=== PATIENT | male | born 1985 | race Caucasian/White ===

== ENCOUNTER 2019-02-15 20:13 | Emergency (ER) | payer OTHER ==
[~2019-02-15] VITALS: Ht 190.5 cm; Wt 106.6 kg
[2019-02-15 20:45] VITALS: BP 124/77
--- NOTE | 2019-02-15 21:19 | NUR ---
#20 gauge OTN catheter to left hand x 1 attempt. Flushed with saline and locked.
--- NOTE | 2019-02-15 21:36 | ER.PDOC ---
General Chief Complaint: Extremities Stated Complaint: R ARM PAIN Time seen by MD: 21:25 Source: patient, family (SPOUSE) Exam Limitations: no limitations History of Present Illness Initial Comments 34 YO MALE PRESENTS WITH RIGHT ANTECUBITAL PAIN AND SWELLING X 2 DAYS. HE STATED HE WAS SHOOTING METH AND MISSED THE VEIN. HE HAS HAD PAIN 9/10, WORSENING SWEL LING. NO FEVER OR CHILLS. NO CHEST PAIN OR SHORTNESS OF BREATH. HE HAS NOT TAKEN ANY MEDICATIONS FOR THE PAIN. Occurred: other (2 DAYS AGO PRIOR TO ARRIVAL) Where: home Severity: severe Exacerbated By: movement of Relieved By: nothing Quality: pain, swelling, tenderness Prior symptoms/Treatment: Similar symptoms previous Allergies: Coded Allergies: tramadol (Verified Allergy, Severe, Anaphylaxis Shock, 02/16/19) Past Medical History Medical History: hypertension Surgical History: tonsillectomy Family History Significant Family History: no pertinent family hx Social History Smoking: non-smoker Alcohol Use: none Drug Use: marijuana, Meth Reviewed Nursing Reviewed: Nursing Assessment Review of Systems Constitutional: denies chills, denies fever, denies malaise Respiratory: denies cough, denies shortness of breath Cardiovascular: denies chest pain, denies edema, denies palpitations Gastrointestinal: denies abdominal pain, denies diarrhea, denies nausea, denies vomiting Musculoskeletal: denies back pain, denies neck pain Skin: other (PAIN AND SWELLNG RIGHT ANTECUBITAL REGION) Psychiatric/Neurological: denies headache Physical Exam General Appearance: mild distress Upper Extremity: tenderness (RIGHT ANTECUBITAL AREA,), swelling (SWOLLEN, WARMTH, ERYTHEMA, INDURATION RIGHT ANTECUBITAL AREA), limited ROM (RIGHT ANTECUBITAL DUE TO PAIN) Skin: warm/dry Vascular: no vascular compromise Neuro/Psych: sensation nml, motor nml Central Exam: oriented X3, CN's nml as tested EENT: eyes nml inspection Neck/Back: nml inspection Respiratory: no resp distress CVS: reg rate & rhythm Abdomen: non-tender Results/Orders Results/Orders Orders - HAILEY REYES MD Cbc With Auto Diff (02/15/19 21:32) Comprehensive Metabolic Panel (02/15/19 21:32) D-Dimer (02/15/19 21:32) Us Soft Tissue Extremity (02/15/19 21:33) Ob Doppler (Er) (02/15/19 21:33) Ketorolac Tromethamine (Toradol) (02/15/19 22:18) Acetaminophen (Tylenol) (02/15/19 22:18) Acetaminophen (Tylenol) (02/15/19 22:22) Ketorolac Tromethamine (Toradol) (02/15/19 22:23) Lidocaine Hcl (Lidocaine 1% Vial) (02/15/19 23:22) Morphine Sulfate (Morphine Sulfate) (02/15/19 23:43) Ceftriaxone Sodium (Rocephin Im) (02/15/19 23:43) Morphine Sulfate/Pf (Duramorph) (02/16/19 00:00) Ceftriaxone Sodium (Rocephin) (02/15/19 23:52) 0.9 % Sodium Chloride (Ns 100ml) (02/15/19 23:55) Ceftriaxone Sodium (Rocephin) (02/15/19 23:55) Vital Signs Date Time Temp Pulse Resp B/P (MAP) Pulse Ox O2 Delivery O2 Flow Rate FiO2 02/16/19 01:46 98.4 96 18 96 Room Air 02/16/19 00:33 96 18 126/88 (101) 96 Room Air 02/15/19 23:57 91 18 123/86 (98) 97 Room Air 02/15/19 20:45 98.4 109 18 97 Room Air 98.4 02/15/19 20:45 98.4 109 18 98.4 02/15/19 20:45 98.4 109 18 124/77 (93) 97 Room Air 98.4 Administered Medications Medications (Trade) Dose Ordered Sig/Elyssa Route PRN Reason Start Time Stop Time Status Last Admin Dose Admin Acetaminophen (Tylenol) 1,000 mg STAT STAT PO 02/15/19 22:18 02/15/19 22:19 DC 02/15/19 22:28 1,000 MG Ceftriaxone Sodium 1000 mg/ Sodium Chloride 100 ml @ 100 mls/hr STAT STAT IV 02/15/19 23:52 02/16/19 00:51 DC 02/16/19 00:05 100 MLS/HR Ketorolac Tromethamine (Toradol) 30 mg STAT STAT IV 02/15/19 22:18 02/15/19 22:19 DC 02/15/19 22:27 30 MG Morphine Sulfate (Duramorph) 4 mg STAT ONCE IV 02/16/19 00:00 02/16/19 00:01 DC 02/16/19 00:05 4 MG Laboratory Tests Test 02/15/19 21:43 White Blood Count 14.5 10^3/uL (4.5-11.0) H Red Blood Count 4.57 10^6/uL (4.50-5.90) Hemoglobin 14.3 g/dL (13.9-16.3) Hematocrit 39.9 % (37.0-53.0) Mean Corpuscular Volume 87.3 fL (78-100) Mean Corpuscular Hemoglobin 31.3 pg (26-34) Mean Corpuscular Hemoglobin Concent 35.8 g/dL (33-37) Red Cell Distribution Width 13.2 % (11.5-14.5) Platelet Count 224 10^3/uL (150-400) Mean Platelet Volume 10.4 fL (7.8-11.0) Neutrophils (%) (Auto) 78.2 % (41.0-85.0) Lymphocytes (%) (Auto) 11.0 % (24.0-44.0) L Monocytes (%) (Auto) 9.0 % (5.0-12.0) Neutrophils # (Auto) 11.3 10^3/uL (1.8-7.7) H Lymphocytes # (Auto) 1.6 10^3/uL (1.0-4.8) Monocytes # (Auto) 1.3 10^3/uL (0.3-0.8) H Absolute Immature Granulocyte (auto 0.02 10^3 u/L (0-2) Immature Granulocytes % 0.10 % (0.00-0.50) Eosinophils % 1.3 % (0.0-5.0) Basophils % 0.4 % (0.0-0.2) H Basophils # 0.1 10^3/uL (0.0-0.1) Eosinophil Count 0.2 10^3/uL (0.0-0.2) D-Dimer 0.19 mg/L (0.19-0.49) Sodium Level 139 mmol/L (132-145) Potassium Level 3.9 mmol/L (3.6-5.2) Chloride Level 102.0 mmol/L (96-109) Carbon Dioxide Level 28.4 mmol/L (20.0-32) Anion Gap 12.5 Blood Urea Nitrogen 23 mg/dL (7-18) H Creatinine 1.23 mg/dL (0.59-1.40) Estimated GFR () 82.0 (>/=60) BUN/Creatinine Ratio 18.0 Glucose Level 117 mg/dL (70-110) H Calcium Level 9.2 mg/dL (8.4-10.5) Total Bilirubin 0.8 mg/dL (0.2-1.0) Aspartate Amino Transferase (AST) 22 U/L (0-35) Alanine Aminotransferase (ALT) 30 U/L (12-78) Alkaline Phosphatase 57 U/L (50-136) Total Protein 7.5 g/dL (6.4-8.2) Albumin 3.8 g/dL (3.4-5.0) Globulin 3.7 Progress Progress ELEVATED WBC, BUN. D-DIMER NEGATIVE. I DID NEEDLE ASPIRATION OF THE TENDER SWOLLEN RIGHT ANTECUBITAL AREA- YIELDED NO ASPIRATE. WILL COMMENCE ANTIBIOTICS, ANALGESICS, CLOSE FOLLOW UP. Departure Time of Disposition: 23:48 Disposition: 01 HOME, SELF-CARE Impression: Primary Impression: Cellulitis Additional Impression: Phlebitis Condition: Stable Patient Instructions: Cellulitis, Phlebitis, [id number] Referrals: PCP,UNKNOWN (PCP) PRIMARY CARE PROVIDER LUCA REDDY MD FOLLOW UP IN 3-5 DAYS FOR RECHECK RETURN TO THE ER IF YOUR CONDITION WORSENS Additional Instructions: ICE PACK TO AFFECTED AREA TO HELP WITH SWELLING. KEEP AFFECTED AREA CLEAN AND DRY. Comments NAPROSYN, KEFLEX, TYLENOL #3 Duration or Time Spent with Pa: 60 MIN Problem Qualifiers Primary Impression: Cellulitis Site of cellulitis: extremity Site of cellulitis of extremity: upper extremity Laterality: right Qualified Codes: L03.113 - Cellulitis of right upper limb HAILEY REYES MD February 15, 2019 21:36
[2019-02-15 21:52] LABS: BASOPHIL # 0.1 10^3/uL (0.0-0.1); BASOPHIL % 0.4 % (0.0-0.2); EOSINOPHIL # 0.2 10^3/uL (0.0-0.2); EOSINOPHIL % 1.3 % (0.0-5.0); HEMOGLOBIN 14.3 g/dL (13.9-16.3); LYMPHOCYTES # 1.6 10^3/uL (1.0-4.8); MEAN CELL HGB 31.3 pg (26-34); MEAN CELL HGB CONCENTRATION 35.8 g/dL (33-37); MEAN CORP VOLUME 87.3 fL (78-100); MEAN PLATELET VOLUME 10.4 fL (7.8-11.0); MONOCYTES # 1.3 10^3/uL (0.3-0.8); NEUTROPHIL # 11.3 10^3/uL (1.8-7.7); NEUTROPHILS % 78.2 % (41.0-85.0); RED CELL DISTRIBUTION WIDTH 13.2 % (11.5-14.5); WHITE BLOOD CELL 14.5 10^3/uL (4.5-11.0)
[2019-02-15] MEDS ORDERED: TORADOL IV STA (22:18)
[2019-02-15] MEDS ORDERED: TYLENOL PO STA (22:18)
[2019-02-15 22:19] LABS: CALCIUM 9.2 mg/dL (8.4-10.5); CARBON DIOXIDE 28.4 mmol/L (20.0-32)
[2019-02-15] MEDS ORDERED: TYLENOL PO ONE (22:22)
[2019-02-15] MEDS ORDERED: TORADOL ONE (22:23)
--- NOTE | 2019-02-15 22:32 | NUR ---
Toradol 30 mg IVP. Tyleno one gram with sips of water. Rates arm pain 9/10.
[2019-02-15] MEDS ORDERED: LIDOCAINE 1% VIAL ONE (23:22)
[2019-02-15] MEDS ORDERED: MORPHINE SULFATE IM STA (23:43)
[2019-02-15] MEDS ORDERED: ROCEPHIN IM IM STA (23:43)
[2019-02-15] MEDS ORDERED: ROCEPHIN 1,000 MG in NS 100ML 100 ML IV STA (23:52)
[2019-02-15] MEDS ORDERED: NS 100ML 100 ML IV ONE (23:55)
[2019-02-15] MEDS ORDERED: ROCEPHIN ONE (23:55)
[2019-02-15 23:57] VITALS: BP 123/86
[2019-02-16] MEDS ORDERED: DURAMORPH IV ONE
[2019-02-16 00:33] VITALS: BP 126/88
--- NOTE | 2019-02-16 01:00 | NUR ---
IV IV removed, tip intact. Placed cottonball over IV site, secured with coban. Instructed patient to remove coban on the arrival of home. Patient expressed understanding
--- NOTE | 2019-02-16 01:03 | NUR ---
Intervention Placed kerlex, ice pack and rhiannon bandage on patients right arm. Patient is in stable condtion at this time.
[2019-02-16 01:46] VITALS: BP 126/88
== END 2019-02-16 01:04 | disposition home or self-care (01) ==
LOC: ER 20:13
DX: L03.113 Cellulitis of right upper limb (principal); I80.8 Phlebitis and thrombophlebitis of other sites; F12.10 Cannabis abuse, uncomplicated; F15.10 Other stimulant abuse, uncomplicated; I10 Essential (primary) hypertension; Z88.6 Allergy status to analgesic agent; Z90.89 Acquired absence of other organs
CPT/HCPCS: 36415; 80053; 85025; 85379; 96365; 96375; 99284; A9150; J0696 ×2; J1885; J2001; J7050 ×2

== ENCOUNTER 2019-02-16 22:52 | Inpatient (IN) | payer OTHER ==
[~2019-02-16] VITALS: Ht 190.5 cm; Wt 108.1 kg
[2019-02-16 23:00] VITALS: BP 125/78
[2019-02-16] MEDS ORDERED: TORADOL IV STA (23:11)
[2019-02-16] MEDS ORDERED: MORPHINE SULFATE IV STA (23:20)
[2019-02-16] MEDS ORDERED: NS 1000ML 1,000 ML IV ONE (23:30)
[2019-02-16] MEDS ORDERED: VANCOMYCIN HCL 1.5 GM in NS 250ML 300 ML IV ONE (23:30)
[2019-02-16] MEDS ORDERED: VANCOMYCIN HCL 2 GM ONE (23:34)
[2019-02-16] MEDS ORDERED: NS 1000ML 1,000 ML ONE (23:35)
[2019-02-16] MEDS ORDERED: NS 250ML 250 ML IV ONE (23:35)
[2019-02-16] MEDS ORDERED: TORADOL ONE (23:36)
[2019-02-16 23:38] LABS: BASOPHIL % 0.3 % (0.0-0.2); EOSINOPHIL # 0.3 10^3/uL (0.0-0.2); HEMOGLOBIN 14.1 g/dL (13.9-16.3); LYMPHOCYTES % 13.6 % (24.0-44.0); MEAN CELL HGB 31.5 pg (26-34); MEAN CELL HGB CONCENTRATION 36.2 g/dL (33-37); MEAN CORP VOLUME 87.2 fL (78-100); MEAN PLATELET VOLUME 10.8 fL (7.8-11.0); MONOCYTES # 1.6 10^3/uL (0.3-0.8); MONOCYTES % 10.7 % (5.0-12.0); NEUTROPHIL # 10.6 10^3/uL (1.8-7.7); NEUTROPHILS % 73.2 % (41.0-85.0); RED CELL DISTRIBUTION WIDTH 13.2 % (11.5-14.5); WHITE BLOOD CELL 14.4 10^3/uL (4.5-11.0)
[2019-02-16 23:54] LABS: CALCIUM 9.2 mg/dL (8.4-10.5); CARBON DIOXIDE 26.7 mmol/L (20.0-32)
--- NOTE | 2019-02-17 00:33 | ER.PDOC ---
General Chief Complaint: Requesting Medical Care Stated Complaint: ARM PAIN Time seen by MD: 12:33 Source: patient Exam Limitations: no limitations History of Present Illness Initial Comments H/O IV DRUG ABUSE Timing/Duration: 24 hours Severity: moderate Location: RUE Quality: painful Identified Cause: yes Exposure: infectious illiness Allergies: Coded Allergies: tramadol (Verified Allergy, Severe, Anaphylaxis Shock, 02/16/19) Past Medical History Surgical History: tonsillectomy Social History Drug Use: marijuana, Meth Reviewed Nursing Reviewed: Vital Signs, Abn. Noted All Other Systems: Reviewed and Negative Physical Exam General Appearance: alert, no distress Skin: tender indurated area, with erythema, with lymphangitis Location: LUE Character: asymmetric With: warmth, tenderness, swelling, lymphangitis, well defined boarders, inflammation Extremities: ROM limited by pain EENT: eyes nml inspection, lips/gums nml, pharynx nml Neck: trachea midline, no swelling Respiratory: no resp. distress, breath sounds nml CVS: reg. rate & rhythm, heart sounds nml Abdomen: non-tender, no organomegaly NEURO/PSYCH: oriented x 3, CN's nml as tested, motor nml, sensation nml, mood/affect nml Results/Orders Results/Orders Orders - JONNY SNADRA MD Cbc With Auto Diff (02/16/19 23:11) Comprehensive Metabolic Panel (02/16/19 23:11) Blood Culture (02/16/19 23:11) Erythrocyte Sedimentation Rate (02/16/19 23:11) C-Reactive Protein (02/16/19 23:11) Urinalysis (02/16/19 23:11) Drug Screen Medical(Ml) (02/16/19 23:11) Vancomycin Hcl (Vancomycin Hcl) (02/16/19 23:30) Ketorolac Tromethamine (Toradol) (02/16/19 23:11) Morphine Sulfate (Morphine Sulfate) (02/16/19 23:20) 0.9 % Sodium Chloride (Ns 1000ml) (02/16/19 23:30) Vancomycin Hcl (Vancomycin Hcl) (02/16/19 23:34) 0.9 % Sodium Chloride (Ns 1000ml) (02/16/19 23:35) 0.9 % Sodium Chloride (Ns 250ml) (02/16/19 23:35) Ketorolac Tromethamine (Toradol) (02/16/19 23:36) Vital Signs Date Time Temp Pulse Resp B/P (MAP) Pulse Ox O2 Delivery O2 Flow Rate FiO2 02/16/19 01:46 96 Administered Medications Medications (Trade) Dose Ordered Sig/Elyssa Route PRN Reason Start Time Stop Time Status Last Admin Dose Admin Ketorolac Tromethamine (Toradol) 30 mg STAT STAT IV 02/16/19 23:11 02/16/19 23:17 DC 02/16/19 23:45 30 MG Morphine Sulfate (Morphine Sulfate) 4 mg STAT STAT IV 02/16/19 23:20 02/16/19 23:22 DC 02/16/19 23:52 4 MG Sodium Chloride 1,000 ml @ 0 mls/hr Q0M ONCE IV 02/16/19 23:30 02/16/19 23:31 DC 02/16/19 23:54 1,000 MLS/HR Vancomycin HCl 1.5 gm/Sodium Chloride 300 ml @ 175 mls/hr OT ONCE IV 02/16/19 23:30 02/17/19 01:12 02/16/19 23:53 175 MLS/HR Laboratory Tests Test 02/16/19 23:25 White Blood Count 14.4 10^3/uL (4.5-11.0) H Red Blood Count 4.47 10^6/uL (4.50-5.90) L Hemoglobin 14.1 g/dL (13.9-16.3) Hematocrit 39.0 % (37.0-53.0) Mean Corpuscular Volume 87.2 fL (78-100) Mean Corpuscular Hemoglobin 31.5 pg (26-34) Mean Corpuscular Hemoglobin Concent 36.2 g/dL (33-37) Red Cell Distribution Width 13.2 % (11.5-14.5) Platelet Count 203 10^3/uL (150-400) Mean Platelet Volume 10.8 fL (7.8-11.0) Neutrophils (%) (Auto) 73.2 % (41.0-85.0) Lymphocytes (%) (Auto) 13.6 % (24.0-44.0) L Monocytes (%) (Auto) 10.7 % (5.0-12.0) Neutrophils # (Auto) 10.6 10^3/uL (1.8-7.7) H Lymphocytes # (Auto) 2.0 10^3/uL (1.0-4.8) Monocytes # (Auto) 1.6 10^3/uL (0.3-0.8) H Absolute Immature Granulocyte (auto 0.03 10^3 u/L (0-2) Immature Granulocytes % 0.20 % (0.00-0.50) Eosinophils % 2.0 % (0.0-5.0) Basophils % 0.3 % (0.0-0.2) H Basophils # 0.0 10^3/uL (0.0-0.1) Erythrocyte Sedimentation Rate Pending Eosinophil Count 0.3 10^3/uL (0.0-0.2) H Sodium Level 140 mmol/L (132-145) Potassium Level 4.0 mmol/L (3.6-5.2) Chloride Level 104.0 mmol/L (96-109) Carbon Dioxide Level 26.7 mmol/L (20.0-32) Anion Gap 13.3 Blood Urea Nitrogen 25 mg/dL (7-18) H Creatinine 1.52 mg/dL (0.59-1.40) H Estimated GFR () 64.2 (>/=60) BUN/Creatinine Ratio 16.0 Glucose Level 115 mg/dL (70-110) H Calcium Level 9.2 mg/dL (8.4-10.5) Total Bilirubin 1.1 mg/dL (0.2-1.0) H Aspartate Amino Transferase (AST) 19 U/L (0-35) Alanine Aminotransferase (ALT) 23 U/L (12-78) Alkaline Phosphatase 62 U/L (50-136) C-Reactive Protein 7.30 mg/dL (0.00-5.00) H Total Protein 7.4 g/dL (6.4-8.2) Albumin 3.8 g/dL (3.4-5.0) Globulin 3.6 Consult/PCP Time Consult/PCP Called: 12:44 Consult/PCP: DR PARISH Departure Time of Disposition: 12:55 Disposition: 09 ADMITTED INPATIENT Impression: Primary Impression: Septic phlebitis of upper extremity Condition: Stable Referrals: PCP,UNKNOWN (PCP) PRIMARY CARE PROVIDER Duration or Time Spent with Pa: 1 HR JONNY SANDRA MD February 17, 2019 00:33
[2019-02-17 01:00] VITALS: BP 135/54
[2019-02-17 02:00] VITALS: BP 129/58
[2019-02-17] MEDS ORDERED: ZOSYN 3.375 GM/50 ML IV SCH (06:00)
[2019-02-17] MEDS ORDERED: ZOSYN 3.375 GRAM VIAL IV ONE (06:45)
[2019-02-17] MEDS ORDERED: NS 100ML 100 ML IV ONE (06:45)
--- NOTE | 2019-02-17 06:49 | NUR ---
REPORT REPORT RECEIVED FROM Breann KNOWLES RN AND ASSUMED CARE OF PT
[2019-02-17] MEDS: NS 1000ML 1,000 ML SCH ×2 (07:14→11:22)
[2019-02-17] MEDS ORDERED: VANCOMYCIN HCL 1 GM ONE (07:51)
[2019-02-17] MEDS ORDERED: NS 250ML 250 ML IV ONE (07:51)
[2019-02-17 08:00] VITALS: BP 132/75
[2019-02-17] MEDS ORDERED: ZOFRAN IV PRN (08:30)
--- NOTE | 2019-02-17 08:44 | PCM.HP ---
History of Present Illness Reason for Visit: Right arm pain/swelling x 1 day History of Present Illness Patient is a 34 M PMH of IV drug abuse who presents with right arm/pain swelling x 1 day. Patient has had associated fever, chills per patient. Patient started on IVF, IV abx, and IV pain medications and admitted for further evaluation. Patient pain is moderate. He has no fevers since admission. He does have mild swelling/redness to area. Area of antecubital fossa is tense/indurated. No clear abscess. Area is warm. Patient denies any other symptoms. Labs, imaging reviewed. Patient is comfortable but does have mild distress from pain. Past Surgical History: Tonsillectomy Past Social History Smoke: <1 pack per day Alcohol: occassional Drugs: Other (Patient has 20 year hx of IV drug abuse (heroin), quit using 1 year ago.) Lives: Friends Travel Hx EBOLA RISK:Travel to/contact w: No Is pt experiencing any Ebola s: No Review of Systems Constitutional: Fever, Chills Eyes: No: Conjunctivae inflammation, Eyelid inflammation ENT: No: Nose discharge, Nose congestion Respiratory: No: Cough, Shortness of breath, SOB with excertion, Wheezing Cardiovascular: No: Chest Pain, Palpitations, Edema Gastrointestinal: No: Nausea, Vomiting, Abdominal Pain Genitourinary: No Hematuria, No Retention Musculoskeletal: arm pain; No: neck pain, back pain Skin: Rash; No: Lesions, Jaundice, Bruising Neurological: No: Weakness, Numbness, Incoordination, Change in speech, Confusion, Seizures Allergies: Coded Allergies: tramadol (Verified Allergy, Severe, Anaphylaxis Shock, 02/16/19) VTE VTE Risk Total Score: 1 VTE Risk Score VTE Risk: Score 0-1 = Low Risk (Aggressive mobilization; early ambulation; no VTE prophylaxis required) Score 2: Moderate Risk (Intermittent/Pneumatic Compression Device OR Lovenox/Heparin/Coumadin) Score 3-4: High Risk (Intermittent/Pneumatic Compression Device AND Lovenox/Heparin/Coumadin) Score > or =5: Highest Risk (Intermittent/Pneumatic Compression Device AND Lovenox/Heparin/Coumadin) VTE VTE Present on Admission: No Currently receiving anticoagul: No VTE Risk Total Score: 1 Exam Vital Signs Vital Signs Date Time Temp Pulse Resp B/P (MAP) Pulse Ox O2 Delivery O2 Flow Rate FiO2 02/17/19 08:03 Room Air 02/17/19 08:00 97.8 76 18 132/75 (94) 97 97.8 02/17/19 01:30 2.00 General Appearance: Alert, Oriented X3, Cooperative, No acute distress HEENT: Atraumatic, PERRLA, EOMI, Mucous membr. moist/pink Respiratory: Clear to auscultation, Normal air movement Cardiovascular: Regular rate, Normal S1, Normal S2, No murmurs Abdominal: Normal bowel sounds, Soft, No tenderness Extremities: No clubbing, No cyanosis, Other (tenderness/redness/swelling/warmth to right antecubital fossa area) Skin: No breakdown, Rash Neuro: Normal gait, Normal speech, Strength at 5/5 X4 ext, Normal tone, Sensation intact, Cranial nerves 3-12 NL Psych/Mental Status: Mental status NL, Mood NL Assessment/Plan Assessment/Plan Assessment/Plan Patient is a 34 M PMH of IV drug abuse who presents with right arm/pain swelling x 1 day. Plan 1. Cellulitis of right arm: cellulitis v. thrombophlebitis v. abscess/lymphadenitis. Cont IV abx (Vanc/Zosyn). Blood cx pending. Cont pain control. IVF. 2. Hx of IV drug use: Heroin drug of choice, will be cautious with Opiate use. 3. PPx: PPI, Lovenox 4. VAMSI: likely 2/2 ATN v AIN. Will cont IVF, repeat metabolic panel in AM. RAMON PARISH MD February 17, 2019 08:44
[2019-02-17] MEDS ORDERED: LOVENOX SQ SCH (09:00)
[2019-02-17] MEDS ORDERED: PROTONIX PO SCH (09:00)
[2019-02-17] MEDS ORDERED: MORPHINE SULFATE IV PRN (09:00)
[2019-02-17] MEDS ORDERED: VANCOMYCIN HCL 1.5 GM in NS 250ML 300 ML IV SCH (09:00)
[2019-02-17] MEDS ORDERED: MORPHINE SULFATE ONE (09:22)
--- NOTE | 2019-02-17 11:59 | NUR ---
ULTRASOUND ULTRASOUND AT BEDSIDE AT THIS TIME
[2019-02-17] MEDS ORDERED: ZOSYN 3.375 GRAM VIAL 3.375 GM in NS 100ML 100 ML IV SCH (12:00)
--- NOTE | 2019-02-17 12:00 | NUR ---
NICOTINE PATCH OFFERED PT NICOTINE PATCH AFTER PT STATES HE WANTED TO SPOKE. EDUCATED PT ON SMOKING POLICY. PT REFUSED PATCH AT THIS TIME
[2019-02-17 12:14] VITALS: BP 157/102
--- NOTE | 2019-02-17 13:04 | NUR ---
UPDATE WENT TO CHECK ON PT. PT STATED "CAN YOU GET THIS IV OUT OF ME? I AM LEAVING THIS PLACE. THIS PLACE ISN'T EQUIPPED TO HANDLE WHAT IS GOING ON HERE. MY ARM IS RED AND HARD". THIS NURSE ADVISED PT THAT THE ANTIBIOTICS TAKE TIME TO START MAKING A DIFFERENCE. PT STATED "I AM JUST GOING TO GO TO [facility]. PLEASE GET THIS THING OUT OF ME". THIS NURSE D/C PT IV AND PT SIGNED AMA. PT SIGNED AMA AND LEFT.
[2019-02-17 13:10] VITALS: BP 157/102
--- NOTE | 2019-02-17 13:17 | PRM.DC ---
Discharge Summary Date of Discharge: February 17, 2019 Time of Request to Discharge: 13:00 Reason for Visit: Right arm pain/swelling x 1 day Hospital Course Patient was admitted with cellulitis v. thrombophlebitis v. abscess v lymphadenitis of RUE approximate to the antecubital fossa. Patient was started on IV abx for symptoms. Please see H and P for further details. Patient had U/S ordered for further evaluation which was completed but official read has not returned yet. Patient was given NSAIDs and IV opiates for pain control. Patien t states that the Morphine was not touching his pain. I informed patient that although he does have reason for pain, Morphine would be the medication we would use for pain control. Patient had substantial amount of Morphine ordered at reasonable frequency for his symptoms. Patient complained that we were not adequately treating his pain. I talked with him and fiancee about treatment and gave my reasoning and the patient/fiancee verbalized understanding and agreement with treatment plan. Patient informed RN that he wanted to leave AMA and wanted a cigarette. Patient was offered Nicotine patch but refused. AMA form printed out for patient and patient signed to leave AMA. Exam/Vitals Discharge exam not performed, patient left AMA. Sepsis Evaluation @ Discharge 02/17/19 12:15 Course Sepsis Screening Results: Posi: NEGATIVE Sepsis Qualifier/Stage: NO DEFINITE RISK Duration or Total Time Spent w: 1 HR Vitals & review Data Vital Sign - Last 24 Hours 02/16/19 02/16/19 02/16/19 02/17/19 23:00 23:00 23:00 01:00 Temp 98.2 98.2 98.2 98.2 98.2 98.2 Pulse 78 78 78 82 Resp 22 22 22 20 B/P (MAP) 125/78 (94) 135/54 (81) Pulse Ox 98 98 97 O2 Delivery Room Air Room Air Room Air 02/17/19 02/17/19 02/17/19 02/17/19 01:30 01:55 02:00 08:00 Temp 98.2 97.0 97.8 97.0 97.8 Pulse 82 70 76 Resp 20 18 18 B/P (MAP) 129/58 (81) 132/75 (94) Pulse Ox 97 95 97 O2 Delivery Nasal Cannula Room Air O2 Flow Rate 2.00 02/17/19 02/17/19 08:03 12:14 Temp 97.7 97.7 Pulse 76 Resp 18 B/P (MAP) 157/102 (120) Pulse Ox 100 O2 Delivery Room Air Laboratory Tests Test 02/16/19 23:25 White Blood Count 14.4 10^3/uL Red Blood Count 4.47 10^6/uL Hemoglobin 14.1 g/dL Hematocrit 39.0 % Mean Corpuscular Volume 87.2 fL Mean Corpuscular Hemoglobin 31.5 pg Mean Corpuscular Hemoglobin Concent 36.2 g/dL Red Cell Distribution Width 13.2 % Platelet Count 203 10^3/uL Mean Platelet Volume 10.8 fL Neutrophils (%) (Auto) 73.2 % Lymphocytes (%) (Auto) 13.6 % Monocytes (%) (Auto) 10.7 % Neutrophils # (Auto) 10.6 10^3/uL Lymphocytes # (Auto) 2.0 10^3/uL Monocytes # (Auto) 1.6 10^3/uL Absolute Immature Granulocyte (auto 0.03 10^3 u/L Immature Granulocytes % 0.20 % Eosinophils % 2.0 % Basophils % 0.3 % Basophils # 0.0 10^3/uL Erythrocyte Sedimentation Rate 14 mm/hr Eosinophil Count 0.3 10^3/uL Sodium Level 140 mmol/L Potassium Level 4.0 mmol/L Chloride Level 104.0 mmol/L Carbon Dioxide Level 26.7 mmol/L Anion Gap 13.3 Blood Urea Nitrogen 25 mg/dL Creatinine 1.52 mg/dL Estimated GFR () 64.2 BUN/Creatinine Ratio 16.0 Glucose Level 115 mg/dL Calcium Level 9.2 mg/dL Total Bilirubin 1.1 mg/dL Aspartate Amino Transf (AST/SGOT) 19 U/L Alanine Aminotransferase (ALT/SGPT) 23 U/L Alkaline Phosphatase 62 U/L C-Reactive Protein 7.30 mg/dL Total Protein 7.4 g/dL Albumin 3.8 g/dL Globulin 3.6 Current Medications Medications (Trade) Dose Ordered Sig/Elyssa PRN Reason Start Time Stop Time Status Last Admin Enoxaparin Sodium (Lovenox) 30 mg DAILY 02/17/19 09:00 03/19/19 08:59 02/17/19 09:26 Morphine Sulfate (Morphine Sulfate) 2 mg Q4H PRN PAIN 02/17/19 09:00 03/19/19 08:59 02/17/19 09:26 Ondansetron HCl (Zofran) 4 mg Q4H PRN NAUSEA / VOMITING 02/17/19 08:30 03/19/19 08:29 Pantoprazole Sodium (Protonix) 40 mg DAILY 02/17/19 09:00 03/19/19 08:59 02/17/19 09:26 Piperacillin Sod/ Tazobactam Sod 3.375 gm/Sodium Chloride 100 ml @ 100 mls/hr Q6H 02/17/19 12:00 03/19/19 11:59 02/17/19 12:20 Sodium Chloride 1,000 ml @ 100 mls/hr Q10H 02/17/19 01:00 03/19/19 00:59 02/17/19 11:22 Vancomycin HCl 1.5 gm/Sodium Chloride 300 ml @ 175 mls/hr Q12HR 02/17/19 09:00 03/19/19 08:59 02/17/19 08:02 Sepsis Infection Criteria Pres: Documented Infection LEVEL 1 SEPSIS INFECTION CRITE: ABX Therapy, Cellulitis O2 Sat by Pulse Oximetry: 100 Oxygen Flow Rate: 2.00 Plan Discharge Date: February 17, 2019 Dicharge DX: RUE cellulitis Discharge Disposition: Other (fair, patient left AMA) Plan Patient left AMA. RAMON PARISH MD February 17, 2019 13:17
--- NOTE | 2019-02-17 14:27 | DIREP ---
PROCEDURE:US SOFT TISSUE COMPARISON:None. INDICATIONS:swelling/pain right antecubital fossa TECHNIQUE:Sonography of the right antecubital fossa was performed using grayscale and color Doppler imaging. FINDINGS: MASSES:There is a large region of skin thickening and subcutaneous edema in the right antecubital fossa. No definite abscess is identified. FLUID COLLECTIONS:None. OTHER:Negative. CONCLUSION:Large inflammatory process in the right antecubital fossa, but no definite discrete fluid collection to suggest an abscess is demonstrated. Dictated by: Denise Osborne III, MD on 02/17/2019 at 02:23 PM
== END 2019-02-17 12:30 | disposition left against medical advice (07) | DRG 814 ==
LOC: ER 22:52 → MS 02-17 00:46 → EDPENDDISTM 02-17 01:23
PROVIDERS: ADMIT Family Medicine; ATTEND Family Medicine
DX: I88.9 Nonspecific lymphadenitis, unspecified (principal); N17.0 Acute kidney failure with tubular necrosis; L03.113 Cellulitis of right upper limb; L02.413 Cutaneous abscess of right upper limb; I80.8 Phlebitis and thrombophlebitis of other sites; F12.90 Cannabis use, unspecified, uncomplicated; F17.210 Nicotine dependence, cigarettes, uncomplicated; Z53.21 Procedure and treatment not carried out due to patient leaving prior to being seen by health care provider; Z88.8 Allergy status to other drugs, medicaments and biological substances
CPT/HCPCS: 36415; 76882; 80053; 85025; 85651; 86140; 87040; 99285; G0378; J1650; J1885; J2270; J2543; J3370; J7030; J7050

== ENCOUNTER 2019-02-25 13:06 | Emergency (ER) | payer OTHER ==
[~2019-02-25] VITALS: Ht 182.9 cm; Wt 90.7 kg
[2019-02-25 13:21] VITALS: BP 138/90
[2019-02-25 13:29] VITALS: BP 138/90
--- NOTE | 2019-02-25 13:39 | ER.PDOC ---
General Chief Complaint: Wound Recheck/Suture Removal Stated Complaint: R ARM WOUND Time seen by MD: 13:33 Source: patient Exam Limitations: no limitations History of Present Illness Previous ED Treatment: I&D of abscess Symptoms Since Procedure: no complaints Allergies: Coded Allergies: tramadol (Verified Allergy, Severe, Anaphylaxis Shock, 02/16/19) Past Medical History Medical History: no pertinent history Surgical History: tonsillectomy Social History Smoking: cigarettes Alcohol Use: none Drug Use: none Reviewed Nursing Reviewed: Vital Signs, Abn. Noted All Other Systems: Reviewed and Negative Physical Exam General Appearance: alert, no distress Neuro/Vascular/Tendon: no vascular compromise, sensation nml, no tendon injury, nml ROM Skin: healing cellulitis, healing abscess Head/ENT: nml inspection, pharynx nml Neck/Back: nml inspection, non-tender, painless ROM Respiratory: chest non-tender, no resp. distress, breath sounds nml CVS: reg. rate & rhythm, heart sounds nml Results/Orders Results/Orders Vital Signs Date Time Temp Pulse Resp B/P (MAP) Pulse Ox O2 Delivery O2 Flow Rate FiO2 02/25/19 13:29 97.7 82 18 95 Room Air 02/25/19 13:29 97.7 82 18 138/90 (106) 95 Room Air 97.7 02/25/19 13:21 97.7 82 18 138/90 (106) 95 Room Air 97.7 02/25/19 13:19 97.7 82 18 95 Room Air 97.7 02/25/19 13:18 97.7 82 18 97.7 Progress Progress WOUND REPACKED Departure Time of Disposition: 14:00 Disposition: 01 HOME, SELF-CARE Impression: Primary Impression: Abscess Condition: Stable Patient Instructions: Abscess, Care After Referrals: PCP,UNKNOWN (PCP) PRIMARY CARE PROVIDER Additional Instructions: IN THE ED EXAM AND WOUND REPACK AT HOME CONTINUE ANTIBIOTICS FOLLOW UP WITH YOUR PRIMARY CARE PROVIDER IN 1-2 DAYS Duration or Time Spent with Pa: JONNY MILLER MD Feb 25, 2019 13:39
== END 2019-02-25 13:35 | disposition home or self-care (01) ==
LOC: ER 13:06
DX: L02.413 Cutaneous abscess of right upper limb (principal); F17.210 Nicotine dependence, cigarettes, uncomplicated; Z88.8 Allergy status to other drugs, medicaments and biological substances
CPT/HCPCS: 99283